=== PATIENT | male | born 1955 | race Caucasian/White ===

== ENCOUNTER 2018-05-14 10:31 | Emergency (ER) | payer OTHER ==
[2018-05-14 11:28] VITALS: BP 156/88
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
[2018-05-14] MEDS ORDERED: Lidocaine 1%* 5 ML VIAL INJ ONE (11:46)
[2018-05-14] MEDS ORDERED: Tetan/Diph/Pertus SYR(Tdap)* 0.5 ML SYR(BOOSTRIX) use SYR IM ONE (11:46)
== END 2018-05-14 13:16 | disposition home or self-care (01) ==
LOC: UCCORT 10:31
DX: Z85.828 Personal history of other malignant neoplasm of skin (principal); S81.812A Laceration without foreign body, left lower leg, initial encounter; V18.0XXA Pedal cycle driver injured in noncollision transport accident in nontraffic accident, initial encounter; Y93.55 Activity, bike riding; Y92.410 Unspecified street and highway as the place of occurrence of the external cause
CPT/HCPCS: 12002; 90471; 90715; 99202; G0463

== ENCOUNTER 2018-05-28 18:03 | Emergency (ER) | payer OTHER ==
[2018-05-28 18:20] VITALS: BP 143/80
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
== END 2018-05-28 18:42 | disposition home or self-care (01) ==
LOC: UCCORT 18:03
DX: S81.812D Laceration without foreign body, left lower leg, subsequent encounter (principal); V19.9XXD Pedal cyclist (driver) (passenger) injured in unspecified traffic accident, subsequent encounter

== ENCOUNTER 2018-08-20 16:15 | Emergency (ER) | payer OTHER ==
--- OUTSIDE RECORDS SUMMARY | 2018-08-20 16:22 | XMS REPORT | Continuity of Care Document ---
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 Payers Date Identification Numbers Payment Provider Subscriber Policy Number: [id number] [facility] [place] PayID: [id number] [address] [place] [phone] Advance Directives Description No Information Available Problems Description No Information Family History Description No Information Available Social History Type Date Description Comments Sex Unknown Lives With Alone 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 Working Hand 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 Right-handed Tobacco Use Start: Unknown Never Smoked Cigarettes ETOH Use Rarely consumes alcohol Recreational Drug Use Denies Drug Use Allergies, Adverse Reactions, Alerts Description No Known Drug Allergies Medications Medication Date Status Form Strength Qnty SIG Indications Ordering Provider Meloxicam Active Tablets 15mg 30tabs 1 by Christianson, 019 mouth MD Kiki every day c food Valtrex Active Tablets 500mg 1 by Unknown 000 mouth every day Acitretin Active Capsules 10mg Unknown 000 Eucrisa Active Ointment 2% thin Unknown 000 layer twice a day Dupixent Active Soln 200mg/1.14M Unknown 000 Prefill L Syringe Immunizations Description No Information Available Vital Signs Date Vital Result Comment 08/12/2018 10:13am BP Systolic 111 mmHg BP Diastolic 75 mmHg Body Temperature 96.8 F Heart Rate 76 /min Height 71 inches 5'11" Weight 185.00 lb BMI (Body Mass Index) 25.8 kg/m2 BSA (Body Surface Area) 2.04 m2 [place] body weight in kilograms 78 kg O2 % BldC Oximetry 99 % Pain Level 2 Results Test Date Facility Test Result H/L Range Note Xray 08/12/2018 [facility] - Orthopedic RMP, Knee, RT, Ap, < pending> [address] ([address] [place] [id number] view) [phone] Procedures Date Code Description Status 08/12/2018 [address]34 Radiology, Knee 3 Views Completed Encounters Type Date Location Provider Dx Diagnosis Office Visit 08/12/2018 Orthopaedic Office Dacia Hodge M25.561 Pain in right 10:00a [facility] knee S83.411A Sprain of medial collateral ligament of right knee, init Plan of Treatment Future Appointment(s):08/28/2018 8:30 am - Ruthy Pal MD at [facility] Jtxneip2908/12/2018 - Dacia Hodge, RPACM25.561 Pain in right kneeS83.411A Sprain of medial collateral ligament of right knee, initial encounterAllNew Medication:Meloxicam 15 mg - 1 by mouth every day c foodComments:I have suggested ice to the right knee 2-3 times per day for 30-45 minutes. He can also use a neoprene or elastic sleeve for support. I do not think he needs a hinged brace at this time. I have faxed in a prescription for Meloxicam 15 mg to be taken daily with food. He will use this in place of ibuprofen. I expect his pain to settle down reasonably over the next couple of weeks. He really has minimal degenerative changes. I will reevaluate him in two weeks and he will contact the office sooner if he would like to begin a formal physical therapy program.
[2018-08-20 17:07] VITALS: BP 146/76
--- NOTE | 2018-08-20 17:17 | UC ---
UC General HPI - HPI Summary HPI Summary: ill with a cough and laryngitis 4 weeks ago. improved but never completely better. past 3-4 days, worsening cough, congestion, throat congestion. no cp, sob, copd/asthma. - History of Current Complaint Chief Complaint: UCGeneralIllness Stated Complaint: COUGH, COLD SX'S Time Seen by Provider: 08/20/18 17:10 Hx Obtained From: Patient Onset/Duration: Gradual Onset Timing: Constant Pain Intensity: 2 Associated Signs & Symptoms: Positive: Cough. Negative: Chest Pain, Fever, SOB - Allergy/Home Medications Allergies/Adverse Reactions: Allergies Allergy/AdvReac Type Severity Reaction Status Date / Time latex Allergy Rash Verified 08/20/18 17:07 eczema Allergy Rash Uncoded 08/20/18 17:07 Home Medications: Home Medications Fluorouracil 0.5 % EX SEE INSTRUCTIONS 08/20/18 [History Confirmed 08/20/18] Meloxicam(NF) [Mobic(NF)] 15 mg PO DAILY 08/20/18 [History Confirmed 08/20/18] PMH/Surg Hx/FS Hx/Imm Hx - Additional Past Medical History Additional PMH: eczema, skin CA Psychological History: Depression - Surgical History Surgical History: Yes Surgery Procedure, Year, and Place: skin cancer and 30 surgeries, b/l iguinal hernias - Family History Known Family History: Positive: Cardiac Disease Family History: skin cancer - Social History Alcohol Use: Occasionally Alcohol Amount: 1 beer weekly Substance Use Type: None Smoking Status (MU): Never Smoked Tobacco - Immunization History Most Recent Tetanus Shot: UNKNOWN Hx Tetanus, Diphtheria Vaccination: Yes - 2017 Review of Systems All Other Systems Reviewed And Are Negative: Yes Respiratory: Positive: Cough Physical Exam Triage Information Reviewed: Yes Appearance: Well-Appearing Vital Signs: Initial Vital Signs Temp 98.2 F 08/20/18 17:01 Pulse 71 08/20/18 17:01 Resp 16 08/20/18 17:01 BP 146/76 08/20/18 17:01 Pulse Ox 99 08/20/18 17:01 Vital Signs Reviewed: Yes Eyes: Positive: Conjunctiva Clear ENT: Positive: Pharynx normal, TMs normal. Negative: Nasal congestion, Nasal drainage Neck: Positive: Supple, Nontender, No Lymphadenopathy Respiratory: Positive: No respiratory distress, Decreased breath sounds, Crackles - bases Cardiovascular: Positive: RRR, No Murmur Abdomen Description: Positive: Nontender, No Organomegaly, Soft Bowel Sounds: Positive: Present Musculoskeletal: Positive: ROM Intact Neurological: Positive: Alert Psychological: Positive: Age Appropriate Behavior Skin Exam: Normal Diagnostics - Radiology No standard instances Radiology Interpretation Completed By: Radiologist - cxr=IMPRESSION: FINDINGS CONSISTENT WITH THE PD, NO EVIDENCE FOR ACUTE FINDING. Course/Dx - Differential Dx - Multi-Symptom Differential Diagnoses: Other - no infiltrate on cxr; however, faint basilar crackles on lung exam and cough with congestion x several days thus will cover for presumptive bacterial infection/possible early pneumonia. need for f/u and recheck to ensure resolution of symptoms stressed at time of visit. - Diagnoses Provider Diagnosis: Cough in adult Discharge - Sign-Out/Discharge Documenting (check all that apply): Patient Departure All imaging exams completed and their final reports reviewed: Yes - Discharge Plan Condition: Stable Disposition: HOME Prescriptions: Azithromycin TAB* [Zithromax TAB (Z-RUSLAN) 250 mg #6 tabs] 2 tab PO .TODAY, THEN 1 DAILY #1 ruslan Patient Education Materials: Acute Cough (ED) Referrals: SAGAR Shea [Medical Doctor] - 7 Days - Billing Disposition and Condition Condition: STABLE Disposition: Home
== END 2018-08-20 18:27 | disposition home or self-care (01) ==
LOC: UCCORT 16:15
DX: R05 Cough (principal); R09.81 Nasal congestion; Z91.040 Latex allergy status
CPT/HCPCS: 71046; 99212; G0463